=== PATIENT | female | born 1980 ===

== ENCOUNTER → 2018-10-28 09:15 | Outpatient (CLI) | payer OTHER | END | disposition home or self-care (01) | LOC: LAB 09:15 | DX: N96 Recurrent pregnancy loss (principal); N94.0 Mittelschmerz; E08.8 Diabetes mellitus due to underlying condition with unspecified complications; Z00.00 Encounter for general adult medical examination without abnormal findings; Z11.4 Encounter for screening for human immunodeficiency virus [HIV] ==